=== PATIENT | male | born 1940 | race African-American/Black ===

== ENCOUNTER 2023-02-10 03:06 | Inpatient (IN) | payer OTHER ==
[2023-02-10] VITALS (44 sets, daily range): BP systolic 99–159; BP diastolic 40–87; PULSE 32–67; RESP 13–33; TEMP 97.5–97.7; O2SAT 100
[~2023-02-10] VITALS: Ht 172.7 cm; Wt 83.0 kg
[~2023-02-10 03:06] MED LIST: AMLODIPINE; ASPIRIN; GLIPIZIDE; LISINOPRIL; WARFARIN
[2023-02-10] MEDS ORDERED: DIGOXIN 500MCG/2ML AMP IV SCH (04:15)
[2023-02-10 06:52] LABS: BASOPHILS % 0.9 % (0.0-2.0); EOSINOPHILS % 0.6 % (0.0-5.0); HEMATOCRIT. 21.6 % (42.0-52.0); LYMPHOCYTES % 17.1 % (20.0-50.0); MEAN CORPUSCULAR HEMOGLOBIN 31.8 pg (28.0-32.0); MEAN PLATELET VOLUME 9.3 fl (7.4-10.4); MONOCYTES % 13.3 % (2.0-8.0); NEUTROPHILS % 68.1 % (40.0-76.0); PLATELET 191 x1000/uL (130-400); RED BLOOD CELL COUNT 2.16 mill/uL (4.7-6.1); RED CELL DISTRIBUTION WIDTH 16.6 % (11.6-14.6)
[2023-02-10 07:14] LABS: HEMOGLOBIN. 6.9 g/dL (14.0-18.0)
[2023-02-10 07:23] LABS: CHLORIDE 122 mEq/L (98-107)
[2023-02-10] MEDS ORDERED: FUROSEMIDE 100MG/10ML VIAL IV STA (07:33)
[2023-02-10] MEDS ORDERED: SODIUM BICARBONATE 8.4% 1 MEQ/ML 50ML SYR IV ONE (07:45)
[2023-02-10] MEDS ORDERED: INSULIN REGULAR (HUMULIN R) 300UNITS/3ML VIAL IV ONE (07:45)
[2023-02-10] MEDS ORDERED: CALCIUM CHLORIDE 1GM/10ML SYR IV ONE (07:45)
[2023-02-10] MEDS ORDERED: DEXTROSE 50% WATER 50ML SYRINGE IV ONE (07:45)
[2023-02-10] MEDS ORDERED: ALBUTEROL (0.083%) 2.5MG/3ML NEB HHN ONE (07:45)
[2023-02-10] MEDS ORDERED: SODIUM BICARBONATE 8.4% 1 MEQ/ML 50ML SYR IV NR ×2 (08:00→17:00)
[2023-02-10] MEDS ORDERED: DOPAMINE 800MG/500ML PREMIX 500 ML IV PRN (11:00)
[2023-02-10] MEDS ORDERED: INSULIN REGULAR (HUMULIN R) 300UNITS/3ML VIAL IV NR ×2 (11:15→17:15)
[2023-02-10] MEDS ORDERED: ONDANSETRON HCL 4MG/2ML INJ IV PRN (11:15)
[2023-02-10] MEDS: DOPAMINE 800MG/500ML PREMIX 500 ML IV PRN (11:52)
[2023-02-10 12:57] LABS: INR > 10.0; PROTHROMBIN TIME > 100.0 sec (9.6-11.0)
[2023-02-10 13:11] LABS: HEPATITIS B SURFACE ANTIGEN NEGATIVE
[2023-02-10] MEDS ORDERED: PHYTONADIONE 10MG/ML AMP SUBCUT SCH (13:15)
[2023-02-10] MEDS ORDERED: CALCIUM GLUCONATE 1,000 MG in DEXT 5% WATER 90 ML IV ONE (14:15)
[2023-02-10] MEDS ORDERED: CALCIUM GLUCONATE 1GM PREMIX 50 ML IV NR (15:30)
[2023-02-10] MEDS ORDERED: TRAMADOL 50MG TABLET PO PRN (16:15)
[2023-02-10] MEDS ORDERED: NALOXONE HCL 0.4MG/ML VIAL IV PRN (16:15)
[2023-02-10 16:32] LABS: HEMATOCRIT 27.4 % (42.0-52.0); HEMOGLOBIN 8.4 g/dL (14.0-18.0)
[2023-02-10] MEDS ORDERED: SODIUM POLYSTYRENE SULFONATE 15 G/60 ML BOT PO NR (17:00)
[2023-02-10] MEDS ORDERED: DEXTROSE 50% WATER 50ML SYRINGE IV NR (17:00)
[2023-02-10] MEDS ORDERED: INSULIN REGULAR (HUMULIN R) 300UNITS/3ML VIAL SUBCUT NR (17:00)
[2023-02-10] MEDS: SODIUM BICARBONATE 100 MEQ in DEXTROSE 5% WATER 1,000 ML IV SCH (17:53)
[2023-02-10] MEDS ORDERED: DEXTROSE 50% WATER 50ML SYRINGE IV PRN (23:00)
[2023-02-11] VITALS (109 sets, daily range): BP systolic 87–184; BP diastolic 36–106; PULSE 35–62; RESP 11–52; TEMP 97.4–98
[2023-02-11] MEDS: LORAZEPAM 2MG/ML CPJ IV PRN ×2 (01:04→22:50)
[2023-02-11] MEDS: DOPAMINE 800MG/500ML PREMIX 500 ML IV PRN (03:27)
[2023-02-11 05:24] LABS: BASOPHILS % 0.2 % (0.0-2.0); EOSINOPHILS % 0.4 % (0.0-5.0); HEMATOCRIT. 25.6 % (42.0-52.0); HEMOGLOBIN. 8.3 g/dL (14.0-18.0); LYMPHOCYTES % 13.9 % (20.0-50.0); MEAN CORPUSCULAR HEMOGLOBIN 31.9 pg (28.0-32.0); MEAN CORPUSCULAR VOLUME 98.8 fL (80.0-94.0); MEAN PLATELET VOLUME 9.3 fl (7.4-10.4); MONOCYTES % 14.2 % (2.0-8.0); NEUTROPHILS % 71.3 % (40.0-76.0); PLATELET 191 x1000/uL (130-400); RED BLOOD CELL COUNT 2.59 mill/uL (4.7-6.1); RED CELL DISTRIBUTION WIDTH 16.2 % (11.6-14.6)
[2023-02-11 08:15] LABS: PROTHROMBIN TIME > 100.0 sec (9.6-11.0)
[2023-02-11 08:20] LABS: INR > 10.0
[2023-02-11] MEDS ORDERED: LIDOCAINE HCL 1% 10 MG/ML 10ML VIAL ONE (09:52)
[2023-02-11] MEDS ORDERED: DEXT 5% IV SCH (16:30)
[2023-02-11] MEDS ORDERED: WATER IV SCH (16:30)
[2023-02-11] MEDS: DOPAMINE HCL IV PRN ×2 (16:30→16:35)
[2023-02-11] MEDS ORDERED: DOPAMINE HCL IV SCH (16:30)
[2023-02-11] MEDS: WATER IV PRN ×2 (16:30→16:35)
[2023-02-11] MEDS: DEXT 5% IV PRN ×2 (16:30→16:35)
[2023-02-11] MEDS: SODIUM BICARBONATE 100 MEQ in DEXTROSE 5% WATER 1,000 ML IV SCH (18:40)
[2023-02-11] MEDS ORDERED: WATER IV PRN (20:14)
[2023-02-11] MEDS ORDERED: DOPAMINE HCL IV PRN (20:14)
[2023-02-11] MEDS ORDERED: DEXT 5% IV PRN (20:14)
[2023-02-11] MEDS: DOPAMINE 800MG PREMIX (DOUBLE) 250 ML IV PRN (20:23)
[2023-02-12] VITALS (96 sets, daily range): BP systolic 66–179; BP diastolic 39–141; PULSE 39–70; RESP 13–28; TEMP 97.5–98.2
[2023-02-12 04:56] LABS: BASOPHILS % 0.6 % (0.0-2.0); EOSINOPHILS % 1.9 % (0.0-5.0); HEMATOCRIT. 24.6 % (42.0-52.0); LYMPHOCYTES % 18.3 % (20.0-50.0); MEAN CORPUSCULAR HEMOGLOBIN 31.9 pg (28.0-32.0); MEAN CORPUSCULAR VOLUME 98.6 fL (80.0-94.0); MEAN PLATELET VOLUME 9.3 fl (7.4-10.4); MONOCYTES % 13.9 % (2.0-8.0); NEUTROPHILS % 65.3 % (40.0-76.0); PLATELET 154 x1000/uL (130-400); RED BLOOD CELL COUNT 2.49 mill/uL (4.7-6.1); RED CELL DISTRIBUTION WIDTH 15.8 % (11.6-14.6)
[2023-02-12 05:04] LABS: CHLORIDE 106 mEq/L (98-107)
[2023-02-12 05:22] LABS: T4 FREE 0.83 ng/dL (0.76-1.46)
[2023-02-12] MEDS: LEVOTHYROXINE SODIUM 50MCG TABLET PO SCH (06:12)
[2023-02-12] MEDS: DOPAMINE 800MG PREMIX (DOUBLE) 250 ML IV PRN ×2 (11:32→20:24)
[2023-02-12] MEDS: SODIUM BICARBONATE 100 MEQ in DEXTROSE 5% WATER 1,000 ML IV SCH (15:25)
[2023-02-13] VITALS (97 sets, daily range): BP systolic 80–178; BP diastolic 28–93; PULSE 41–97; RESP 12–24; TEMP 97.5–98.2
[2023-02-13 05:27] LABS: BASOPHILS % 0.6 % (0.0-2.0); EOSINOPHILS % 1.7 % (0.0-5.0); HEMOGLOBIN. 8.5 g/dL (14.0-18.0); LYMPHOCYTES % 20.2 % (20.0-50.0); MEAN CORPUSCULAR HEMOGLOBIN 32.9 pg (28.0-32.0); MEAN CORPUSCULAR VOLUME 97.2 fL (80.0-94.0); MEAN PLATELET VOLUME 8.8 fl (7.4-10.4); MONOCYTES % 14.8 % (2.0-8.0); NEUTROPHILS % 62.7 % (40.0-76.0); PLATELET 156 x1000/uL (130-400); RED BLOOD CELL COUNT 2.58 mill/uL (4.7-6.1); RED CELL DISTRIBUTION WIDTH 15.5 % (11.6-14.6)
[2023-02-13 06:00] LABS: PROTHROMBIN TIME 48.8 sec (9.6-11.0)
[2023-02-13] MEDS: LEVOTHYROXINE SODIUM 50MCG TABLET PO SCH (06:42)
[2023-02-13] MEDS: DOPAMINE 800MG PREMIX (DOUBLE) 250 ML IV PRN (10:56)
[2023-02-13] MEDS: LORAZEPAM 2MG/ML CPJ IV PRN (21:56)
[2023-02-14] VITALS (107 sets, daily range): BP systolic 74–176; BP diastolic 30–124; PULSE 40–119; RESP 5–36; TEMP 96.8–98.4
[2023-02-14] MEDS: DOPAMINE 800MG PREMIX (DOUBLE) 250 ML IV PRN ×2 (01:05→12:37)
[2023-02-14 02:58] LABS: CLARITY URINE CLEAR (CLEAR); COLOR URINE YELLOW (YELLOW); SPECIFIC GRAVITY URINE 1.013 (1.005-1.030)
[2023-02-14 02:59] LABS: KETONES URINE NEGATIVE (NEGATIVE); LEUKOCYTE ESTERASE URINE NEGATIVE (NEGATIVE); NITRITE URINE NEGATIVE (NEGATIVE); OCCULT BLOOD URINE NEGATIVE (NEGATIVE); PROTEIN URINE 1+ (NEGATIVE); UROBILINOGEN URINE 0.2 E.U./dL (0.2-1.0)
[2023-02-14 04:29] LABS: HEMATOCRIT. 29.5 % (42.0-52.0); MEAN CORPUSCULAR HEMOGLOBIN 32.7 pg (28.0-32.0); MEAN CORPUSCULAR VOLUME 96.6 fL (80.0-94.0); MEAN PLATELET VOLUME 9.1 fl (7.4-10.4); PLATELET 148 x1000/uL (130-400); RED BLOOD CELL COUNT 3.05 mill/uL (4.7-6.1); RED CELL DISTRIBUTION WIDTH 14.9 % (11.6-14.6)
[2023-02-14 04:49] LABS: PHOSPHORUS 2.3 mg/dL (2.5-4.9)
[2023-02-14] MEDS: LEVOTHYROXINE SODIUM 50MCG TABLET PO SCH (06:24)
[2023-02-14 08:57] LABS: PLATELET ESTIMATE NORMAL
[2023-02-14] MEDS: FUROSEMIDE 100MG/10ML VIAL IVP SCH ×2 (09:40→18:09)
[2023-02-14] MEDS ORDERED: DEXTROSE 50% WATER 50ML SYRINGE IV PRN (12:00)
[2023-02-14] MEDS: INSULIN LISPRO 100 UNITS/ML SUBCUT SCH ×3 (12:36→20:30)
[2023-02-14] MEDS: BLOOD SUGAR DIAGNOSTIC STRIP TEST SCH ×2 (16:30→20:30)
[2023-02-14 18:53] LABS: INR 2.2; PROTHROMBIN TIME 22.5 sec (9.6-11.0)
[2023-02-15] VITALS (84 sets, daily range): BP systolic 74–176; BP diastolic 39–102; PULSE 40–73; RESP 9–24; TEMP 97.1–97.8
[2023-02-15 05:20] LABS: HEMATOCRIT. 25.1 % (42.0-52.0); HEMOGLOBIN. 8.4 g/dL (14.0-18.0); MEAN CORPUSCULAR VOLUME 95.6 fL (80.0-94.0); MEAN PLATELET VOLUME 9.1 fl (7.4-10.4); PLATELET 148 x1000/uL (130-400); RED BLOOD CELL COUNT 2.63 mill/uL (4.7-6.1); RED CELL DISTRIBUTION WIDTH 14.6 % (11.6-14.6)
[2023-02-15 05:25] LABS: CHLORIDE 104 mEq/L (98-107)
[2023-02-15 05:38] LABS: PHOSPHORUS 2.4 mg/dL (2.5-4.9)
[2023-02-15] MEDS: LEVOTHYROXINE SODIUM 50MCG TABLET PO SCH (06:17)
[2023-02-15] MEDS: INSULIN LISPRO 100 UNITS/ML SUBCUT SCH ×4 (06:26→21:00)
[2023-02-15] MEDS: BLOOD SUGAR DIAGNOSTIC STRIP TEST SCH ×4 (06:26→21:00)
[2023-02-15] MEDS ORDERED: GENTAMICIN/NS IRRIGATION 500 ML IR NR (07:45)
[2023-02-15] MEDS ORDERED: ETOMIDATE 2MG/ML 10ML VIAL IV ONE (08:04)
[2023-02-15] MEDS ORDERED: PROPOFOL 200MG/20ML VIAL IV ONE (08:04)
[2023-02-15] MEDS ORDERED: ROCURONIUM BROMIDE 10MG/ML VIAL 5ML IV ONE (08:04)
[2023-02-15] MEDS ORDERED: EPHEDRINE SULFATE 50MG/ML VIAL ONE (08:04)
[2023-02-15] MEDS ORDERED: MIDAZOLAM HCL 2 MG/2 ML VIAL ONE (08:04)
[2023-02-15] MEDS ORDERED: SUCCINYLCHOLINE CHLORIDE 200MG/10ML IV ONE (08:05)
[2023-02-15] MEDS ORDERED: LIDOCAINE HCL 1% 20ML VIAL (Pyxis) INJ ONE (08:35)
[2023-02-15] MEDS ORDERED: CEFAZOLIN SODIUM 1000MG/VIAL ONE (08:47)
[2023-02-15] MEDS ORDERED: SODIUM PHOS,M-BASIC-D-BASIC 20 MM in DEXT 5% WATER 243.3333 ML IV NR (09:00)
[2023-02-15] MEDS ORDERED: HEPARIN 1000 UNITS/ML 10ML ONE (09:18)
[2023-02-15] MEDS ORDERED: MORPHINE SULFATE 2 MG/ML CPJ (NOT FOR IM USE) IV PRN (10:15)
[2023-02-15] MEDS ORDERED: LACTULOSE 20G/30ML UDC PO PRN (10:15)
[2023-02-15] MEDS: DOCUSATE SODIUM SUGAR FREE 100MG/10ML UDC PO SCH (12:32)
[2023-02-15] MEDS: FUROSEMIDE 100MG/10ML VIAL IVP SCH ×2 (12:32→17:55)
[2023-02-15 12:55] LABS: PLATELET ESTIMATE NORMAL
[2023-02-15] MEDS ORDERED: CEFAZOLIN SODIUM 1000MG/VIAL IV SCH (14:00)
[2023-02-15] MEDS ORDERED: LACTULOSE 20G/30ML UDC PO NR (16:15)
[2023-02-15] MEDS: CEFAZOLIN 1000MG PREMIX 50 ML IV SCH ×2 (17:54→23:03)
[2023-02-15] MEDS ORDERED: NALOXONE HCL 0.4MG/ML VIAL IV PRN (23:30)
[2023-02-16] VITALS: BP 124/55; PULSE 80; RESP 20; TEMP 98
[2023-02-16 04:00] VITALS: BP 115/60; PULSE 60; RESP 18; TEMP 97
[2023-02-16] MEDS: CEFAZOLIN 1000MG PREMIX 50 ML IV SCH ×2 (05:04→13:21)
[2023-02-16] MEDS: LEVOTHYROXINE SODIUM 50MCG TABLET PO SCH (06:13)
[2023-02-16] MEDS: BLOOD SUGAR DIAGNOSTIC STRIP TEST SCH ×4 (06:26→20:48)
[2023-02-16] MEDS: INSULIN LISPRO 100 UNITS/ML SUBCUT SCH ×4 (07:09→20:50)
[2023-02-16 07:37] LABS: BASOPHILS % 0.7 % (0.0-2.0); EOSINOPHILS % 2.1 % (0.0-5.0); HEMATOCRIT. 23.7 % (42.0-52.0); LYMPHOCYTES % 17.5 % (20.0-50.0); MEAN CORPUSCULAR HEMOGLOBIN 32.6 pg (28.0-32.0); MEAN CORPUSCULAR VOLUME 95.9 fL (80.0-94.0); MEAN PLATELET VOLUME 8.9 fl (7.4-10.4); MONOCYTES % 14.6 % (2.0-8.0); NEUTROPHILS % 65.1 % (40.0-76.0); PLATELET 143 x1000/uL (130-400); RED BLOOD CELL COUNT 2.47 mill/uL (4.7-6.1); RED CELL DISTRIBUTION WIDTH 14.9 % (11.6-14.6)
[2023-02-16 07:58] LABS: PHOSPHORUS 3.7 mg/dL (2.5-4.9)
[2023-02-16 08:00] VITALS: BP 142/51; PULSE 60; RESP 18; TEMP 97.3
[2023-02-16] MEDS: DOCUSATE SODIUM SUGAR FREE 100MG/10ML UDC PO SCH (09:00)
[2023-02-16] MEDS: FUROSEMIDE 40MG/4ML VIAL IVP SCH ×2 (09:07→17:33)
[2023-02-16] MEDS ORDERED: LEVO50TA8 PO (09:27)
[2023-02-16] MEDS ORDERED: FURO-151 MT (09:27)
[2023-02-16] MEDS ORDERED: APIX5TAB MT ×2 (09:27)
[2023-02-16 12:00] VITALS: BP 119/48; PULSE 60; RESP 19; TEMP 97.5
[2023-02-16 13:03] LABS: INR 1.5
[2023-02-16 16:00] VITALS: BP 148/96; PULSE 61; RESP 19; TEMP 97.5
[2023-02-16 20:00] VITALS: BP_SYST 98; PULSE 89; RESP 20; TEMP 98.2
[2023-02-17] VITALS (7 sets, daily range): BP systolic 119–154; BP diastolic 45–72; PULSE 59–74; RESP 17–18; TEMP 97–98.8; O2SAT 99
[2023-02-17] MEDS: BLOOD SUGAR DIAGNOSTIC STRIP TEST SCH ×4 (06:26→21:19)
[2023-02-17] MEDS: LEVOTHYROXINE SODIUM 50MCG TABLET PO SCH (06:26)
[2023-02-17] MEDS: INSULIN LISPRO 100 UNITS/ML SUBCUT SCH ×4 (06:39→22:20)
[2023-02-17] MEDS: FUROSEMIDE 40MG/4ML VIAL IVP SCH ×2 (08:50→18:02)
[2023-02-17] MEDS: DOCUSATE SODIUM SUGAR FREE 100MG/10ML UDC PO SCH (08:50)
[2023-02-17 12:02] LABS: HEMATOCRIT. 23.1 % (42.0-52.0); HEMOGLOBIN. 7.8 g/dL (14.0-18.0); MEAN CORPUSCULAR HEMOGLOBIN 32.5 pg (28.0-32.0); MEAN CORPUSCULAR VOLUME 96.5 fL (80.0-94.0); MEAN PLATELET VOLUME 9.4 fl (7.4-10.4); PLATELET 166 x1000/uL (130-400); RED BLOOD CELL COUNT 2.39 mill/uL (4.7-6.1); RED CELL DISTRIBUTION WIDTH 15.8 % (11.6-14.6)
[2023-02-17 13:51] LABS: PLATELET ESTIMATE NORMAL
[2023-02-17] MEDS: METOPROLOL TARTRATE 25MG TABLET PO SCH (21:00)
[2023-02-18] VITALS (10 sets, daily range): BP systolic 100–141; BP diastolic 35–67; PULSE 59–86; RESP 17–20; TEMP 97.3–98.2
[2023-02-18] MEDS: HYDROCODONE/ACETAMINOPHEN 5/325MG TABLET PO PRN ×2 (01:30→21:14)
[2023-02-18] MEDS: LEVOTHYROXINE SODIUM 50MCG TABLET PO SCH (05:27)
[2023-02-18] MEDS: BLOOD SUGAR DIAGNOSTIC STRIP TEST SCH ×4 (05:27→21:00)
[2023-02-18 06:40] LABS: MEAN CORPUSCULAR HEMOGLOBIN 32.4 pg (28.0-32.0); MEAN CORPUSCULAR VOLUME 96.6 fL (80.0-94.0); PLATELET 170 x1000/uL (130-400); RED BLOOD CELL COUNT 2.13 mill/uL (4.7-6.1); RED CELL DISTRIBUTION WIDTH 15.8 % (11.6-14.6)
[2023-02-18 06:51] LABS: HEMATOCRIT. 20.5 % (42.0-52.0); HEMOGLOBIN. 6.9 g/dL (14.0-18.0)
[2023-02-18] MEDS: INSULIN LISPRO 100 UNITS/ML SUBCUT SCH ×4 (07:35→21:17)
[2023-02-18] MEDS: FUROSEMIDE 40MG/4ML VIAL IVP SCH (08:54)
[2023-02-18] MEDS: DOCUSATE SODIUM SUGAR FREE 100MG/10ML UDC PO SCH (08:54)
[2023-02-18] MEDS: METOPROLOL TARTRATE 25MG TABLET PO SCH ×2 (08:55→21:13)
[2023-02-18 11:14] LABS: PLATELET ESTIMATE NORMAL
[2023-02-18 18:44] LABS: HEMATOCRIT 24.4 % (42.0-52.0); HEMOGLOBIN 8.3 g/dL (14.0-18.0); MEAN CORPUSCULAR HEMOGLOBIN 32.7 pg (28.0-32.0); MEAN CORPUSCULAR VOLUME 96.4 fL (80.0-94.0); PLATELET 189 x1000/uL (130-400); RED BLOOD CELL COUNT 2.54 mill/uL (4.7-6.1); RED CELL DISTRIBUTION WIDTH 15.8 % (11.6-14.6)
[2023-02-19] VITALS: BP 133/51; PULSE 63; RESP 18; TEMP 96.9
[2023-02-19 04:00] VITALS: BP 140/59; PULSE 61; RESP 18; TEMP 97.1
[2023-02-19] MEDS: LEVOTHYROXINE SODIUM 50MCG TABLET PO SCH (06:32)
[2023-02-19] MEDS: INSULIN LISPRO 100 UNITS/ML SUBCUT SCH ×4 (06:41→21:16)
[2023-02-19] MEDS: BLOOD SUGAR DIAGNOSTIC STRIP TEST SCH ×4 (06:48→21:16)
[2023-02-19 08:25] VITALS: BP 167/65; PULSE 77; RESP 20; TEMP 98
[2023-02-19] MEDS: METOPROLOL TARTRATE 25MG TABLET PO SCH ×2 (08:59→21:15)
[2023-02-19] MEDS: DOCUSATE SODIUM SUGAR FREE 100MG/10ML UDC PO SCH (09:00)
[2023-02-19 12:25] VITALS: BP 125/40; PULSE 80; RESP 20; TEMP 98.2
[2023-02-19 16:25] VITALS: BP 151/51; PULSE 72; RESP 20; TEMP 98.1
[2023-02-19 20:00] VITALS: BP 139/62; PULSE 60; RESP 16; TEMP 96.8
[2023-02-20] VITALS: BP 155/53; PULSE 56; RESP 18; TEMP 96.9
[2023-02-20 04:00] VITALS: BP 155/53; PULSE 56; RESP 18; TEMP 96.9
[2023-02-20] MEDS: INSULIN LISPRO 100 UNITS/ML SUBCUT SCH ×4 (06:10→21:45)
[2023-02-20] MEDS: BLOOD SUGAR DIAGNOSTIC STRIP TEST SCH ×4 (06:10→21:00)
[2023-02-20] MEDS: LEVOTHYROXINE SODIUM 50MCG TABLET PO SCH (06:30)
[2023-02-20 08:00] VITALS: BP 138/60; PULSE 68; RESP 19; TEMP 97.7
[2023-02-20 08:13] LABS: BASOPHILS % 0.9 % (0.0-2.0); EOSINOPHILS % 1.7 % (0.0-5.0); HEMATOCRIT. 27.9 % (42.0-52.0); HEMOGLOBIN. 9.4 g/dL (14.0-18.0); LYMPHOCYTES % 16.2 % (20.0-50.0); MEAN CORPUSCULAR HEMOGLOBIN 33.1 pg (28.0-32.0); MEAN CORPUSCULAR VOLUME 98.1 fL (80.0-94.0); MEAN PLATELET VOLUME 8.2 fl (7.4-10.4); MONOCYTES % 14.8 % (2.0-8.0); NEUTROPHILS % 66.4 % (40.0-76.0); PLATELET 278 x1000/uL (130-400); RED BLOOD CELL COUNT 2.85 mill/uL (4.7-6.1); RED CELL DISTRIBUTION WIDTH 15.9 % (11.6-14.6)
[2023-02-20] MEDS: METOPROLOL TARTRATE 25MG TABLET PO SCH ×2 (08:30→21:43)
[2023-02-20] MEDS: DOCUSATE SODIUM SUGAR FREE 100MG/10ML UDC PO SCH (08:30)
[2023-02-20 12:00] VITALS: BP 138/59; PULSE 74; RESP 18; TEMP 98.1
[2023-02-20 16:00] VITALS: BP 141/68; PULSE 72; RESP 18; TEMP 98.4
[2023-02-20 20:00] VITALS: BP 133/42; PULSE 58; RESP 16; TEMP 96.8
[2023-02-21] VITALS: BP 126/56; PULSE 66; RESP 17; TEMP 96.8
[2023-02-21 04:00] VITALS: BP 142/77; PULSE 55; RESP 18; TEMP 97.7
[2023-02-21] MEDS: BLOOD SUGAR DIAGNOSTIC STRIP TEST SCH ×4 (06:01→20:45)
[2023-02-21] MEDS: INSULIN LISPRO 100 UNITS/ML SUBCUT SCH ×4 (06:01→20:47)
[2023-02-21] MEDS: LEVOTHYROXINE SODIUM 50MCG TABLET PO SCH (06:03)
[2023-02-21 08:00] VITALS: BP 132/57; PULSE 76; RESP 20; TEMP 99
[2023-02-21] MEDS: METOPROLOL TARTRATE 25MG TABLET PO SCH ×2 (08:31→20:45)
[2023-02-21] MEDS: DOCUSATE SODIUM SUGAR FREE 100MG/10ML UDC PO SCH (08:31)
[2023-02-21] MEDS: FUROSEMIDE 40MG TABLET PO SCH (10:05)
[2023-02-21 11:44] LABS: HEMATOCRIT. 26.8 % (42.0-52.0); HEMOGLOBIN. 9.1 g/dL (14.0-18.0); MEAN CORPUSCULAR HEMOGLOBIN 33.3 pg (28.0-32.0); MEAN CORPUSCULAR VOLUME 97.6 fL (80.0-94.0); PLATELET 277 x1000/uL (130-400); RED BLOOD CELL COUNT 2.75 mill/uL (4.7-6.1); RED CELL DISTRIBUTION WIDTH 16.1 % (11.6-14.6)
[2023-02-21 12:00] VITALS: BP 120/66; PULSE 79; RESP 18; TEMP 97.7
[2023-02-21 13:05] LABS: PLATELET ESTIMATE NORMAL
[2023-02-21 16:00] VITALS: BP 114/61; PULSE 79; RESP 18; TEMP 97.5
[2023-02-22 01:55] VITALS: BP 118/70; PULSE 70; RESP 18; TEMP 98.6
[2023-02-22 04:00] VITALS: BP 130/50; PULSE 78; RESP 20; TEMP 97.8
[2023-02-22] MEDS: BLOOD SUGAR DIAGNOSTIC STRIP TEST SCH ×4 (06:10→20:39)
[2023-02-22] MEDS: LEVOTHYROXINE SODIUM 50MCG TABLET PO SCH (06:10)
[2023-02-22 07:38] LABS: HEMATOCRIT. 25.5 % (42.0-52.0); HEMOGLOBIN. 8.6 g/dL (14.0-18.0); MEAN CORPUSCULAR HEMOGLOBIN 32.9 pg (28.0-32.0); MEAN PLATELET VOLUME 8.9 fl (7.4-10.4); PLATELET 314 x1000/uL (130-400)
[2023-02-22] MEDS: INSULIN LISPRO 100 UNITS/ML SUBCUT SCH ×4 (07:39→20:39)
[2023-02-22 08:00] VITALS: BP 159/58; PULSE 61; RESP 18; TEMP 97.4
[2023-02-22] MEDS: DOCUSATE SODIUM SUGAR FREE 100MG/10ML UDC PO SCH (09:00)
[2023-02-22] MEDS: METOPROLOL TARTRATE 25MG TABLET PO SCH ×2 (09:29→20:37)
[2023-02-22] MEDS: FUROSEMIDE 40MG TABLET PO SCH (09:29)
[2023-02-22 11:06] LABS: PLATELET ESTIMATE NORMAL
[2023-02-22 12:00] VITALS: BP 151/51; PULSE 54; RESP 20; TEMP 97.2
[2023-02-22 16:00] VITALS: BP 114/54; PULSE 67; RESP 22; TEMP 98.6
[2023-02-22 20:00] VITALS: BP 130/80; PULSE 88; RESP 18; TEMP 97
[2023-02-23] VITALS: BP 128/60; PULSE 70; RESP 18; TEMP 98.6
[2023-02-23 04:00] VITALS: BP 142/80; PULSE 97; RESP 20; TEMP 98.6
[2023-02-23] MEDS: BLOOD SUGAR DIAGNOSTIC STRIP TEST SCH ×4 (06:39→20:42)
[2023-02-23] MEDS: LEVOTHYROXINE SODIUM 50MCG TABLET PO SCH (06:39)
[2023-02-23] MEDS: INSULIN LISPRO 100 UNITS/ML SUBCUT SCH ×4 (07:09→20:44)
[2023-02-23 08:00] VITALS: BP 151/65; PULSE 62; RESP 18; TEMP 97
[2023-02-23 12:00] VITALS: BP 133/55; PULSE 61; RESP 20; TEMP 98.4
[2023-02-23] MEDS: FUROSEMIDE 40MG TABLET PO SCH (12:03)
[2023-02-23] MEDS: METOPROLOL TARTRATE 25MG TABLET PO SCH ×2 (12:03→20:42)
[2023-02-23] MEDS: DOCUSATE SODIUM SUGAR FREE 100MG/10ML UDC PO SCH (12:14)
[2023-02-23 16:00] VITALS: BP 101/62; PULSE 66; RESP 20; TEMP 96.6
[2023-02-23] MEDS: AMLODIPINE 5MG TABLET PO SCH (17:00)
[2023-02-23] MEDS: BUMETANIDE 1MG TABLET PO SCH (18:54)
[2023-02-23 20:00] VITALS: BP 122/53; PULSE 60; RESP 18; TEMP 98.8
[2023-02-23] MEDS: ACETAMINOPHEN 325MG TABLET PO PRN (22:23)
[2023-02-24] VITALS (7 sets, daily range): BP systolic 117–150; BP diastolic 52–100; PULSE 59–84; RESP 16–20; TEMP 97.7–100.8
[2023-02-24] MEDS: BUMETANIDE 1MG TABLET PO SCH ×2 (06:21→17:57)
[2023-02-24] MEDS: LEVOTHYROXINE SODIUM 50MCG TABLET PO SCH (06:21)
[2023-02-24] MEDS: BLOOD SUGAR DIAGNOSTIC STRIP TEST SCH ×3 (06:22→21:15)
[2023-02-24] MEDS: INSULIN LISPRO 100 UNITS/ML SUBCUT SCH ×3 (07:08→21:48)
[2023-02-24] MEDS: DOCUSATE SODIUM SUGAR FREE 100MG/10ML UDC PO SCH (10:40)
[2023-02-24] MEDS: AMLODIPINE 5MG TABLET PO SCH (10:41)
[2023-02-24] MEDS: ACETAMINOPHEN 325MG TABLET PO PRN (10:41)
[2023-02-24 13:57] LABS: EOSINOPHILS % 2.8 % (0.0-5.0); HEMATOCRIT. 25.5 % (42.0-52.0); HEMOGLOBIN. 8.5 g/dL (14.0-18.0); LYMPHOCYTES % 20.7 % (20.0-50.0); MEAN CORPUSCULAR HEMOGLOBIN 32.5 pg (28.0-32.0); MEAN CORPUSCULAR VOLUME 98.2 fL (80.0-94.0); MEAN PLATELET VOLUME 7.3 fl (7.4-10.4); MONOCYTES % 14.1 % (2.0-8.0); NEUTROPHILS % 61.4 % (40.0-76.0); PLATELET 327 x1000/uL (130-400); RED CELL DISTRIBUTION WIDTH 15.9 % (11.6-14.6)
[2023-02-24] MEDS: METOPROLOL TARTRATE 25MG TABLET PO SCH ×2 (17:57→21:50)
[2023-02-25] VITALS (8 sets, daily range): BP systolic 122–158; BP diastolic 46–83; PULSE 62–86; RESP 18–20; TEMP 96.8–98.6; O2SAT 97
[2023-02-25 06:18] LABS: BASOPHILS % 0.7 % (0.0-2.0); EOSINOPHILS % 2.2 % (0.0-5.0); HEMATOCRIT. 24.6 % (42.0-52.0); HEMOGLOBIN. 8.4 g/dL (14.0-18.0); LYMPHOCYTES % 22.3 % (20.0-50.0); MEAN CORPUSCULAR HEMOGLOBIN 33.2 pg (28.0-32.0); MEAN CORPUSCULAR VOLUME 97.3 fL (80.0-94.0); MEAN PLATELET VOLUME 7.6 fl (7.4-10.4); MONOCYTES % 14.5 % (2.0-8.0); NEUTROPHILS % 60.3 % (40.0-76.0); PLATELET 331 x1000/uL (130-400); RED BLOOD CELL COUNT 2.52 mill/uL (4.7-6.1); RED CELL DISTRIBUTION WIDTH 15.8 % (11.6-14.6)
[2023-02-25] MEDS: LEVOTHYROXINE SODIUM 50MCG TABLET PO SCH (06:19)
[2023-02-25] MEDS: BUMETANIDE 1MG TABLET PO SCH ×2 (06:19→16:47)
[2023-02-25] MEDS: INSULIN LISPRO 100 UNITS/ML SUBCUT SCH ×4 (06:55→21:07)
[2023-02-25] MEDS: BLOOD SUGAR DIAGNOSTIC STRIP TEST SCH ×4 (07:10→20:57)
[2023-02-25] MEDS ORDERED: AMLODIPINE 10MG TABLET PO SCH (09:00)
[2023-02-25] MEDS: DOCUSATE SODIUM SUGAR FREE 100MG/10ML UDC PO SCH (09:00)
[2023-02-25] MEDS: METOPROLOL TARTRATE 25MG TABLET PO SCH ×2 (09:23→21:01)
== END 2023-02-25 23:20 | disposition home health service (06) | DRG 242 ==
LOC: ER 03:06 → MICUSO 08:35 → EDBEDREQSVC 11:36 → 8WST 02-15 22:30
PROVIDERS: ADMIT Internal Medicine; ATTEND Internal Medicine
PROC: 30233K1 Transfusion of Nonautologous Frozen Plasma into Peripheral Vein, Percutaneous Approach (ICD-10-PCS; 2023-02-10)
PROC: 5A1D70Z Performance of Urinary Filtration, Intermittent, Less than 6 Hours Per Day (ICD-10-PCS; principal; 2023-02-11)
PROC: 02HV33Z Insertion of Infusion Device into Superior Vena Cava, Percutaneous Approach (ICD-10-PCS; 2023-02-11)
PROC: 5A1D70Z Performance of Urinary Filtration, Intermittent, Less than 6 Hours Per Day (ICD-10-PCS; 2023-02-12)
PROC: 5A1D70Z Performance of Urinary Filtration, Intermittent, Less than 6 Hours Per Day (ICD-10-PCS; 2023-02-13)
PROC: 5A1D70Z Performance of Urinary Filtration, Intermittent, Less than 6 Hours Per Day (ICD-10-PCS; 2023-02-14)
PROC: 0JH606Z Insertion of Pacemaker, Dual Chamber into Chest Subcutaneous Tissue and Fascia, Open Approach (ICD-10-PCS; 2023-02-15)
PROC: 02H63JZ Insertion of Pacemaker Lead into Right Atrium, Percutaneous Approach (ICD-10-PCS; 2023-02-15)
PROC: 02HK3JZ Insertion of Pacemaker Lead into Right Ventricle, Percutaneous Approach (ICD-10-PCS; 2023-02-15)
PROC: 30233N1 Transfusion of Nonautologous Red Blood Cells into Peripheral Vein, Percutaneous Approach (ICD-10-PCS; 2023-02-18)
DX: I44.2 Atrioventricular block, complete (principal); I50.33 Acute on chronic diastolic (congestive) heart failure; J96.01 Acute respiratory failure with hypoxia; N18.6 End stage renal disease; N17.9 Acute kidney failure, unspecified; I13.2 Hypertensive heart and chronic kidney disease with heart failure and with stage 5 chronic kidney disease, or end stage renal disease; G93.40 Encephalopathy, unspecified; D68.9 Coagulation defect, unspecified; E44.0 Moderate protein-calorie malnutrition; I31.39 Other pericardial effusion (noninflammatory); I48.92 Unspecified atrial flutter; E87.5 Hyperkalemia; I48.91 Unspecified atrial fibrillation; D64.9 Anemia, unspecified; E03.9 Hypothyroidism, unspecified; Z20.822 Contact with and (suspected) exposure to COVID-19; I27.20 Pulmonary hypertension, unspecified; I35.0 Nonrheumatic aortic (valve) stenosis; E11.22 Type 2 diabetes mellitus with diabetic chronic kidney disease; R00.1 Bradycardia, unspecified; Z99.2 Dependence on renal dialysis; Z79.01 Long term (current) use of anticoagulants; Z68.27 Body mass index [BMI] 27.0-27.9, adult; Z86.73 Personal history of transient ischemic attack (TIA), and cerebral infarction without residual deficits; Z90.49 Acquired absence of other specified parts of digestive tract; Z87.891 Personal history of nicotine dependence
CPT/HCPCS: 36415; 36556; 71045; 76937; 80048; 80053; 81003; 82962; 83036; 83735; 83880; 84100; 84132; 84439; 84443; 84481; 84484; 85014; 85018; 85025; 85027; 86705; 86709; 86803; 86850; 86900; 86920; 86927; 87340; 87426; 90935; 93005; 93306; 93970; 94644; 97110; 97162; 97166; 97530; 97535; 99285; A4565; A6261; C1752; J0330; J0610; J0690; J1160; J1265; J1644; J1815; J1940; J2060; J2250; J2704; J3430; J3490; J7060; J7070; P9016; P9017; A4315